=== PATIENT | female | born 2000 ===

== ENCOUNTER → 2025-06-07 11:00 | Outpatient (REF) | payer BC, SELFPAY | LOC: CLAB 11:00 | PROVIDERS: ATTENDING PHYSICIAN Otolaryngology | DX: J35.1 Hypertrophy of tonsils (principal) | CPT/HCPCS: 88304 ==

== ENCOUNTER 2025-06-17 21:01 | Observation (INO) | payer BC, SELFPAY ==
[2025-06-17 21:00] VITALS: BP 130/84; BMI 24.5
--- NOTE | 2025-06-17 21:54 | HPS.HSE ---
Family Physician
-
Family Physician: Severo Garcia
Chief Complaint
-
bleeding from surgical site
History of Present Illness
24-year-old female past medical history of tonsillectomy on 06/07 complicated by bleeding, narcolepsy, ADHD, anxiety/depression, migraines, presenting as a transfer from [facility].
Patient underwent tonsillectomy/adenoidectomy on 06/07 at outpatient surgical center by Dr. Shirley Ness. Approximately 6 days after surgery she developed bleeding from the site and almost choked during sleeping. She presented to [facility]
for postoperative bleeding. She was observed for 24 hours and discharged. She returned overnight for recurrent bleeding causing choking. She was taken to the operating room for cauterization of tonsillectomies site for bleeding. While in the
PACU she had recurrent bleeding and was taken back for control bleeding with ligation of lingual artery. Stitches were placed at that time.
Patient also developed oleary on her lip and cheek from silver nitrate used for cauterization. She was supposed to see plastic surgery but this was never accomplished before she was transferred to [facility].
Medical History
Past Medical History
Past Medical History: Reports Other (tonsillectomy on 06/07 complicated by bleeding, narcolepsy, ADHD, anxiety/depression, migraines,)
Past Surgical History: Reports Orthopedic (ACL surgery )
Social History
Alcohol: None
Drug: None
Personal: Single
Family History
Family History: Not pertinent
Allergies / Home Medications
Allergies reflects when Allergies were last updated in [employer].
Home Medications with original date entered in [employer]
Allergy/Medication List:
-
Review of Systems
-
Constitutional: Reports No Symptoms
EENT: Reports No Symptoms
Respiratory: Reports No Symptoms
Cardiac: Reports No Symptoms
Abdomen/GI: Reports No Symptoms
: Reports No Symptoms
Musculoskeletal: Reports No Symptoms
Skin: Reports No Symptoms
Neurological: Reports No Symptoms
Endocrine: Reports No Symptoms
Hematologic/Lymphatic: Reports No Symptoms
Psych: Reports No Symptoms
Physical Exam
Vital Signs
Vital Signs
Temp Pulse Resp BP Pulse Ox
97.6 F 83 19 130/84 100
06/17/25 21:00 06/17/25 21:00 06/17/25 21:00 06/17/25 21:00 06/17/25 21:00
Physical Exam
General: Well Developed, Well Nourished and No Apparent Distress
HEENT: NormoCephalic, Moist mucous membranes and Atraumatic
Respiratory: Clear
Cardiac: S1/S2 and Regular Rhythm; No Murmur or Rub
GI: Soft, Non Tender, Non Distended and Normal Bowel Sounds; No Organomegaly
Rectal: Deferred by Provider
Musculoskeletal: No Clubbing, No Cyanosis and No Edema
Skin: Other (silver nitrate stains on lip ); No Rash
Neuro: Nonfocal/grossly intact
Data Reviewed
-
Lab Data: Labs Reviewed by me
Old Records: Reviewed
Impression/Plan
-
IMPRESSION:
PLAN:
# Postoperative bleeding from tonsillectomy/adenoidectomy site status post failed cauterization and ligation of lingual artery with stitches
# Acute blood loss anemia
- Patient feels that the stitches are coming off and worried about recurrent bleeding, risk for impending bleeding
- Patient's ENT physician Dr. Gin Nses ([phone]) to evaluate patient today and to be notified if further bleeding
- Hemoglobin did drop from 12-10.4, and patient did not require blood transfusions
- Continue clindamycin empirically for potential infection at surgical site
- Full liquid diet
- Continue ferrous sulfate
# Silver nitrate oleary of lip/cheek
-Continue topical bacitracin/polymyxin
- Consult wound care
- Plastics evaluation/derm was requested by [facility] which was never accomplished before transfer
ADHD
- Continue methylphenidate
Anxiety/depression
- Continue Lexapro
Narcolepsy
- Continue Lumryz, Sunosi
Migraines
- Continue sumatriptan as needed
Full code
DVT prophylaxis�SCDs
Regular diet
--- NOTE | 2025-06-17 22:44 | W.CON.OTO ---
Otolaryngology Consult
Consult
Performing Provider: Gin Ness
Chief Complaint
post-tonsillectomy bleeding
History of Present Illness
24 f 10 d s/p tonsillectomy at [facility] complicated by post-op bleeding . Transferred from [facility] for continuity of care after emergent cautery in OR. Needs to be observed for recurrent bleeding. Is feeling traumatized and fearful of
re-bleeding and also co pain in throat as expected. Has also expected hunger and fatigue since minimal pO since surgery and disrupted sleep/ rest
Medical History
Past Medical History: Psychiatric
Additional Past Medical History:
narcolepsy, anxiety
Physical Exam
Vitals / Labs:
Vital Signs
Temp 97.6 F 06/17/25 21:00
Temp route: Oral 06/17/25 21:00
Pulse 83 06/17/25 21:00
Resp Rate 19 06/17/25 21:00
Blood pressure 130/84 06/17/25 21:00
Blood pressure extremity used: Left upper arm 06/17/25 21:00
Position: Lying 06/17/25 21:00
SaO2 100 06/17/25 21:00
Oxygen Mode of Delivery Room air 06/17/25 21:00
Actual Weight 70.931 kg 06/17/25 21:00
Body Mass Index (BMI) 24.5 06/17/25 21:00
Exam:
bilateral tonsillar fossae with secondary eschar as expected, no clots visible now.
Assessment / Plan
Observe for re-bleeding ( has had 3-4 bleeds since initial operation but is nearing end of bleeding risk period) . Keep IV access. OK for full liquid diet, stress meal replacement like Boost or Ensure to help with nutrition. Recommend continued pain
control and also consider daily stool softener like colace. Hydrate with IVF if needed and agree with lab check in AM to follow electrolytes and HCT.
--- NOTE | 2025-06-17 23:00 | PTCARENOTE ---
Direct admit to from [place] around 2229. Pt. able to ambulate with steady gait and no device. Hospitalist and ENT at bedside to see patient. Oriented pt. and parents to room and unit policies, bed locked and in lowest position, side rails in
place, call light within reach, and questions answered.
[2025-06-17 23:03] VITALS: BP 111/74
[2025-06-17] MEDS: CLEOCIN 50 IV (23:43)
[2025-06-17] MEDS: NON-FORMULARY ITEM 1 UNIT PO (23:43)
[2025-06-17] MEDS: TESSALON PERLES 100 MG PO (23:58)
[2025-06-17] MEDS: PERCOCET 5/325 1 TABLET PO (23:58)
[2025-06-18 03:05] VITALS: BP 97/54
[2025-06-18] MEDS: PERCOCET 5/325 2 TABLET PO ×2 (05:54→21:10)
[2025-06-18] MEDS: TESSALON PERLES 100 MG PO ×2 (05:59→12:30)
[2025-06-18 06:14] LABS: Hematocrit 26.6 % (37.0-47.0); Hemoglobin 9.0 g/dL (12.0-16.0); Mean Corp Hgb Conc. 33.8 g/dL (33.0-37.0); Mean Corpuscular Volume 85.3 fL (81.0-99.0); Platelet Count 289 10^3/uL (130-400); Red Cell Dist. Width 12.6 % (11.5-14.5)
[2025-06-18 06:31] LABS: ALT (SGPT) 10 U/L (0-35); AST (SGOT) 14 U/L (14-36); Albumin 3.4 g/dl (3.5-5.0); Alkaline Phosphatase 53 U/L (38-126); Blood Urea Nitrogen 6 mg/dl (7-17); Calcium 9.2 mg/dl (8.4-10.2); Carbon Dioxide 28 mmol/L (22-30); Chloride 106 mmol/L (98-107); Estimated Creatinine Clearance > 125 ml/min; Glucose 93 mg/dl (70-99); Potassium 4.0 mmol/L (3.5-5.1); Sodium 138 mmol/L (135-145); Total Protein 5.9 g/dl (6.3-8.2); eGFR > 60.00
[2025-06-18 07:10] VITALS: BP 108/71
[2025-06-18 07:36] LABS: Nucleated Red Blood Cells % 0 %
[2025-06-18] MEDS: MORPHINE SULFATE 1 MG IV (07:49)
[2025-06-18] MEDS: COLACE 100 MG PO ×2 (07:49→21:10)
[2025-06-18] MEDS: NON-FORMULARY ITEM 1 UNIT PO ×2 (07:50→17:49)
--- NOTE | 2025-06-18 08:14 | W.PN.UPDATE ---
Update Note
Progress Note Update
I saw and evaluated the patient. I reviewed the resident�s note and agree with findings and plan as documented in the resident�s note.
Denies oropharyngeal bleeding today.
Pt seen and examined with pt's father and both grandparents present at bedside for the entirety of the interview and physical exam
Gen: NAD, AAOx3.
Eyes: EOMI, PERRLA, no scleral icterus.
Neck: supple.
ENMT: Oropharynx without blood. Evidence of tonsillectomy.
CV: RRR, +S1/S2, no m/r/g.
Resp: CTAB, no rales, wheezes, or rhonchi.
Skin: No rashes.
Neuro: CN 2-12 intact, non-focal.
Psych: Normal mood and affect.
Acute blood loss anemia due to postoperative bleeding from tonsillectomy/adenoidectomy site:
-s/p failed cauterization and ligation of lingual artery with stitches
-Patient feels that the stitches are coming off and worried about recurrent bleeding
-Patient's ENT physician Dr. Gin Ness ([phone]) saw in c/s
-Hb 9.0 (was 12 prior)
-Continue clindamycin empirically for potential infection at surgical site
-Full liquid diet
-Continue ferrous sulfate
Silver nitrate oleary of lip/cheek
-Continue topical bacitracin/polymyxin
-Consult wound care
-Plastics evaluation/derm was requested by [facility] which was never accomplished before transfer
ADHD
- Continue methylphenidate
Anxiety/depression
- Continue Lexapro
Narcolepsy
- Continue Lumryz, Sunosi
Migraines
- Continue sumatriptan as needed
RN updated
FULL/SCDs
Dispo: possible d/c after seen by Dr. Ness today.
--- NOTE | 2025-06-18 08:30 | W.PN.HOSP.TC ---
Today's Communication/Plan
-
ENT Dr. Ness following
Continue current treatment
Wound consult
Assessment / Plan
Assessment / Plan
24-year-old female with a past medical history of anxiety and narcolepsy, status post tonsillectomy 10 days ago who was transferred from [facility] for continuity of care after emergent cautery in OR. Patient admitted for observation for
recurrent bleeding.
Assessment/plan:
# Post tonsillectomy bleeding
# Acute blood loss anemia
Patient failed cauterization and ligation of lingual artery with stitches
�ENT Dr. Ness following- [phone]. Dr. Ness to see again today 06/18/25.
�Keep IV access, okay for full liquid diet, stressed meal replacement like boost or Ensure to help with nutrition.
�Continue clindamycin, ferrous sulfate, pain control, IV fluids and Colace.
�Hgb 9.0, decreased from 12. Trend labs to follow electrolytes and HCT.
# Burn of lip and check due to silver nitrate
- Wound care consulted
- Continue topical bacitracin/polymyxin.
#ADHD
#Anxiety
#Depression
- Continue methylphenidate, Lexapro
#Narcolepsy
- Continue Lumryz, solfiramfetol
# Migraines
- Continue sumatriptan
Code status: Full code
DVT prophylaxis: SCDs
Anticipated Discharge: Within 24 hours
Subjective/Interval History
-
Date of Service: June 18, 2025
Patient states she feels fine. She did not have any oropharyngeal bleeding today. No new complaints.
Objective Data
-
Labs:
Laboratory Results
06/18/25
05:47
WBC 6.5
Hgb 9.0 L
Hct 26.6 L
Plt Count 289
Sodium 138
Potassium 4.0
Chloride 106
Carbon Dioxide 28
BUN 6 L
Creatinine 0.6
Glucose 93
Calcium 9.2
Total Bilirubin 0.3
AST 14
ALT 10
Alkaline Phosphatase 53
Vital Signs:
Vital Signs
Temp Pulse Resp BP Pulse Ox
98.4 F 72 16 108/71 98
06/18/25 07:10 06/18/25 07:10 06/18/25 07:10 06/18/25 07:10 06/18/25 07:10
I&O
06/17/25 06/18/25 06/19/25
06:59 06:59 06:59
Intake Total 960 / 960
Balance 960 / 960
Review of Systems
-
History Source: Patient
All other systems: Reviewed and negative
Constitutional: Reports No Symptoms
EENT: Reports No Symptoms Reported
Respiratory: Reports No Symptoms
Cardiac: Reports No Symptoms
Breast: Reports No Symptoms
Genitourinary: Reports No Symptoms
Musculoskeletal: Reports No Symptoms
Skin: Reports No Symptoms
Neuro: Reports No Symptoms
Endocrine: Reports No Symptoms
Physical Exam
-
General: Well Developed, Well Nourished, No Apparent Distress and Conversant
HEENT: Normocephalic, Atraumatic, Moist Mucous Membranes, Anicteric and Other (No evidence of bleeding in the oropharynx.)
Respiratory: Clear to Auscultation
Cardiac: Regular Rhythm and S1/S2
GI: Soft, Nontender, Nondistended, Normal Bowel Sounds and No Hepatosplenomegaly
Musculoskeletal: No Clubbing, No Cyanosis and No Edema
Neuro: Awake and AO x 3
Psych: Calm
Data Reviewed
-
Labs: Labs Reviewed by me and Discussed with Physician
Old Records: Reviewed
[2025-06-18] MEDS: CLEOCIN 50 IV (08:57)
--- NOTE | 2025-06-18 10:55 | PTCARENOTE ---
Morphine given for 10/10 throat pain with good relief. Patient tolerating >50% of full liquid meal. Patient OOB with supervision. Patient took shower independently. Family at bedside.
--- NOTE | 2025-06-18 11:31 | CM ---
CM following re: discharge planning.
Reviewed pt's chart, met with pt. Pt's grandparents at bedside.
Pt is a 24 year old female, admitted with OBS status and primary dx of Postoperative bleeding from tonsillectomy/adenoidectomy site status post failed cauterization and ligation of lingual artery with stitches. Pt transferred from [facility].
Pt expressed her very negative feelings regarding care at [facility]. Emotional support offered and provided.
OBS status explained to the pt, pt declined to sign, has a copy, OBS letter placed on chart.
Pt reports she lives with parents 2SH, 2 steps to enter and pt described herself as independent in all areas [employer].
PCP: Severo Garcia
Pharmacy: [facility]
D/C plan: home with anticipated no needs. Parents to transport at discharge.
CM will follow with discharge plan updates as hospitalization progresses.
--- NOTE | 2025-06-18 11:57 | WOUNDNOTE ---
[facility] RN NOTE: Reviewed chart and met with patient and family. Patient admitted for observation after recurrent bleeding s/p tonsillectomy on 06/07. During cauterization, patients right lip was burned with silver nitrate. 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
pics s/p burn and wound appears to be processing toward healing. Patient expressed that she is anxious about the burn and wants it to go away so she will not be reminded of the recurrent bleeding episodes at [place]. As the silver nitrate is
sloughing off, the exposed skin appears to be healing well. No open areas or drainage noted. Triple antibiotic ointment has been ordered and patient is also using Aquaphor at bedside. Instructed patient to continue to keep skin moist. Dr. Robb,
RN Aleida and discharge instructions updated. Will sign off.
[2025-06-18] MEDS: POLYSPORIN OINTMENT 1 APPLIC TOPICAL (12:29)
[2025-06-18] MEDS: PERCOCET 5/325 1 TABLET PO (12:34)
[2025-06-18] MEDS: MIRALAX 17 GRAMS PO (13:00)
--- NOTE | 2025-06-18 15:36 | W.PN.ENT ---
Today's Communication
-
see above
Impression / Plan
-
S/p tonsillar bleed after tonsillectomy. Risk of rebleed reduces with every passing day. Pt interested in advancing diet, ok with me for soft food.
continue to try to support bowel function , agree with miralax and colace. Should get better when pt can take more normal food with residual.
pain control , ok with percocet pt can take 1-2 as needed, had morphine for breakthrough.
Ok to stop abx, not necessary at this pt.
If tonight ok, anticipate am d/c
Subjective Data
-
Pain was bad and am and now tolerable . REquesting soft food. No bleeding today, pain goes back and forth. Slept 6-7 h last night!
Objective Data
-
Vital Signs
Temp Pulse Resp BP Pulse Ox
98.4 F 72 16 108/71 98
06/18/25 07:10 06/18/25 07:10 06/18/25 07:10 06/18/25 07:10 06/18/25 07:10
Intake & Output
06/17/25 06/18/25 06/19/25
06:59 06:59 06:59
Intake:
Oral fluids 960 / 960
Other:
Number of approximated MODERATE 1
amounts of urine
How many times incontinent 1
MODERATE amount urine
Lab Results
06/18/25 05:47
06/18/25 05:47
Calcium 9.2 mg/dl (8.4-10.2) 06/18/25 05:47
Total Bilirubin 0.3 mg/dl (0.2-1.3) 06/18/25 05:47
AST 14 U/L (14-36) 06/18/25 05:47
ALT 10 U/L (0-35) 06/18/25 05:47
Alkaline Phosphatase 53 U/L (38-126) 06/18/25 05:47
Physical Exam
-
tonsillar fossae with expected secondary eschar, no clots present or any blood, old or new. Epidermal stain over upper lip is sloughing off as expected also.
Data Reviewed
-
Radiology Results: Report Reviewed and Image Reviewed
Micro Results: Report Reviewed
[2025-06-18 16:00] VITALS: BP 121/80
[2025-06-18] MEDS: CLEOCIN IV (16:24)
--- NOTE | 2025-06-18 18:00 | PTCARENOTE ---
Patient tolerated soft diet, ate 100%. Patient ambulating in halls with a seady gait. Patient has minimal c/o pain at present. Friend at bedside.
--- NOTE | 2025-06-18 22:36 | PTCARENOTE ---
Pt tolerating diet, no BM this shift @ this time. Pt with visitors beginning of [facility] that stayed for 3 hours, pt was talking majority of time during the visit. Pt request pain medication for 8 pain r/t to talking. Pt aware that she should have
limited her speaking. RN assessed tonisl, no active sign of bleeding, both tonsil sites appear healthy, tissue white not swelling noted.
[2025-06-18 23:11] VITALS: BP 106/73
[2025-06-19 06:24] LABS: Hematocrit 29.0 % (37.0-47.0); Hemoglobin 10.0 g/dL (12.0-16.0); Mean Corp Hgb Conc. 34.5 g/dL (33.0-37.0); Mean Corpuscular Volume 83.8 fL (81.0-99.0); Nucleated Red Blood Cells % 0 %; Platelet Count 366 10^3/uL (130-400); Red Cell Dist. Width 12.4 % (11.5-14.5)
[2025-06-19 06:33] LABS: ALT (SGPT) 11 U/L (0-35); AST (SGOT) 15 U/L (14-36); Albumin 3.8 g/dl (3.5-5.0); Alkaline Phosphatase 65 U/L (38-126); Blood Urea Nitrogen 7 mg/dl (7-17); Calcium 9.7 mg/dl (8.4-10.2); Carbon Dioxide 30 mmol/L (22-30); Chloride 103 mmol/L (98-107); Estimated Creatinine Clearance 118 ml/min; Glucose 90 mg/dl (70-99); Magnesium 2.2 mg/dl (1.6-2.3); Potassium 4.4 mmol/L (3.5-5.1); Sodium 137 mmol/L (135-145); Total Protein 6.4 g/dl (6.3-8.2); eGFR > 60.00
[2025-06-19 07:15] VITALS: BP 111/68
[2025-06-19] MEDS: COLACE 100 MG PO (07:33)
[2025-06-19] MEDS: TESSALON PERLES 100 MG PO (07:33)
[2025-06-19] MEDS: PERCOCET 5/325 2 TABLET PO (07:34)
[2025-06-19] MEDS: NON-FORMULARY ITEM 1 UNIT PO (07:36)
--- NOTE | 2025-06-19 07:45 | W.PN.UPDATE ---
Addendum entered and electronically signed by Walt Hoffman MD 06/19/25 09:24:
I have sent 7 tablets of Percocet to the patient's pharmacy. I did review the [place]PDMP. The patient did recently receive [place]. I discussed this over the phone with her. She states that the [place] 'made her sick.' She states that she is going to
have her mother return the remaining [place] to the pharmacy to be destroyed.
Original Note:
Update Note
Progress Note Update
I saw and evaluated the patient. I reviewed the resident�s note and agree with findings and plan as documented in the resident�s note.
Denies oropharyngeal bleeding.
Pt seen and examined with LOLA Joy present at bedside for the entirety of the interview and physical exam
Gen: NAD, AAOx3.
Eyes: EOMI, PERRLA, no scleral icterus.
Neck: supple.
ENMT: Oropharynx without blood. Evidence of tonsillectomy.
CV: remains RRR, +S1/S2, no m/r/g.
Resp: remains CTAB, no rales, wheezes, or rhonchi.
Skin: No rashes.
Neuro: CN 2-12 intact, non-focal.
Psych: Normal mood and affect.
Acute blood loss anemia due to postoperative bleeding from tonsillectomy/adenoidectomy site:
-s/p failed cauterization and ligation of lingual artery with stitches
-Patient feels that the stitches are coming off and worried about recurrent bleeding
-Patient's ENT physician Dr. Gin Ness ([phone]) saw in c/s
-Hb stable, currently 10
-no need for further clindamycin as per ENT
-Full liquid diet
-Continue ferrous sulfate
Silver nitrate oleary of lip/cheek
-Continue topical bacitracin/polymyxin
-Consult wound care
-Plastics evaluation/derm was requested by [facility] which was never accomplished before transfer
ADHD
- Continue methylphenidate
Anxiety/depression
- Continue Lexapro
Narcolepsy
- Continue Lumryz, Sunosi
Migraines
- Continue sumatriptan as needed
FULL/SCDs
Total time spent on d/c = 31 min. This included today's physical exam, progress note, review of laboratory and diagnostic data, preparation of discharge documents and prescriptions, and discussions about the pt's hospital course and discharge plan
with the patient and other medical staff services manager involved in the patient's care.
--- NOTE | 2025-06-19 08:02 | W.PN.HOSP.TC ---
Today's Communication/Plan
-
Patient medically stable for discharge.
Assessment / Plan
Assessment / Plan
24-year-old female with a past medical history of anxiety and narcolepsy, status post tonsillectomy 10 days ago who was transferred from [facility] for continuity of care after emergent cautery in OR. Patient admitted for observation for
recurrent bleeding.
Assessment/plan:
# Post tonsillectomy bleeding
# Acute blood loss anemia
Patient failed cauterization and ligation of lingual artery with stitches
�ENT Dr. Gin Ness was consulted. Risk of rebleed reduces with every passing day. Recommends advancing diet as tolerated, supporting bowel function, Miralax/Colace, pain control as needed.
�Okay to stop clindamycin per ENT recs. Okay to discharge today 06/19 if no new symptoms.
�Hgb 10.0 today 06/19/2025, increased from 9.0 from yesterday.
# Burn of lip and check due to silver nitrate
- Wound care was consulted.
- Continue topical bacitracin/polymyxin as needed.
#ADHD
#Anxiety
#Depression
- Continue methylphenidate, Lexapro
#Narcolepsy
- Continue Lumryz, solfiramfetol
# Migraines
- Continue sumatriptan
Code status: Full code
DVT prophylaxis: SCDs
Anticipated Discharge: Today
Subjective/Interval History
-
Date of Service: June 19, 2025
Patient denies any bleeding overnight. No new complaints.
Objective Data
-
Labs:
Laboratory Results
06/19/25
05:32
WBC 7.9
Hgb 10.0 L
Hct 29.0 L
Plt Count 366 D
Sodium 137
Potassium 4.4
Chloride 103
Carbon Dioxide 30
BUN 7
Creatinine 0.7
Glucose 90
Calcium 9.7
Total Bilirubin 0.3
AST 15
ALT 11
Alkaline Phosphatase 65
Vital Signs:
Vital Signs
Temp Pulse Resp BP Pulse Ox
98.2 F 70 16 106/73 99
06/18/25 23:11 06/18/25 23:11 06/18/25 23:11 06/18/25 23:11 06/18/25 23:11
I&O
06/18/25 06/19/25 06/20/25
06:59 06:59 06:59
Intake Total 960 / 960 580 / 580
Balance 960 / 960 580 / 580
Review of Systems
-
History Source: Patient
All other systems: Reviewed and negative
Constitutional: Reports No Symptoms
EENT: Reports No Symptoms Reported
Respiratory: Reports No Symptoms
Cardiac: Reports No Symptoms
Breast: Reports No Symptoms
Genitourinary: Reports No Symptoms
Musculoskeletal: Reports No Symptoms
Skin: Reports No Symptoms
Neuro: Reports No Symptoms
Endocrine: Reports No Symptoms
Physical Exam
-
General: Well Developed, Well Nourished, No Apparent Distress and Conversant
HEENT: Normocephalic, Atraumatic, Moist Mucous Membranes, Anicteric and Other (No evidence of bleeding in the oropharynx.)
Respiratory: Clear to Auscultation
Cardiac: Regular Rhythm and S1/S2
GI: Soft, Nontender, Nondistended, Normal Bowel Sounds and No Hepatosplenomegaly
Musculoskeletal: No Clubbing, No Cyanosis and No Edema
Neuro: Awake and AO x 3
Psych: Calm
Data Reviewed
-
Labs: Labs Reviewed by me and Discussed with Physician
Old Records: Reviewed
--- NOTE | 2025-06-19 08:11 | W.DCSUMMARY ---
Discharge Summary
Discharge Data
Date of Admission: 06/17/25
Date of Discharge: 06/19/25
-
Pending Results: No
Hospital Course
Discharging Physician : Dr. Walt Hoffman and Dr. Larry Robb
Disposition : Home
Primary care physician : Dr. Severo Garcia
Principal Discharge diagnosis : Post tonsillectomy bleeding with acute blood loss anemia, burn of lip and cheek due to silver nitrate
Chronic Discharge diagnosis :
ADHD
Anxiety
Depression
Narcolepsy
Migraines
Hospital Course :
This is a 24-year-old female with a past medical history of anxiety, depression, narcolepsy, migraines, ADHD, status post tonsillectomy/adenoidectomy on 06/07/[address] Gin Ness. Approximately 6 days after surgery she started having bleeding
from the surgical site and states ' almost choked during sleeping.' Patient went to [facility] for the symptoms, and was observed for 24 hours. Patient was transferred to our facility for continuity of care after getting emergent cautery in
the OR. Patient was admitted for observation for recurrent bleeding and to be evaluated by Dr. Gin Ness. Patient's hemoglobin was 9.0 upon arrival, decreased from 12 at baseline. She was continued on clindamycin, ferrous sulfate,
Colace/MiraLAX, pain control and IV fluids. Patient was okay for full liquid diet, stressed meal replacement with boost or Ensure to help with nutrition. We trended her labs to follow electrolytes and hematocrit.
Patient also had oleary of lip and cheek due to silver nitrate for which wound care was consulted. We continued topical bacitracin/polymyxin as needed. Patient's ADHD/anxiety/depression was managed with her at home regimen including methylphenidate
and Lexapro. We continued Lumryz and solfiramfetol for narcolepsy, and sumatriptan for migraines.
She was reevaluated on 06/18/[address]ess. Patient's risk of rebleeding reduces with every passing day. Patient was interested in advancing her diet so was approved for soft food and advancing as tolerated. Dr. Ness recommended continuing
to support bowel function/ pain control as needed. Antibiotics were stopped as they were not necessary anymore. Patient was to be observed overnight on 06/18/2025, and if did not have any symptoms, plan discharge the next day on 06/19/2025.
Patient was well overnight and did not have any episodes of bleeding. She was advised to follow-up with PCP in 1 week and ENT as needed. Patient and family agreed to this plan.
Discharge Plan
-
Patient Disposition: Home (Routine Discharge)
Discharge Diagnosis/Procedures: Post-tonsillectomy bleeding with acute blood loss anemia, burn of lip and cheek due to silver nitrate
Condition: Good
Diet: No restrictions
Activity: No restrictions
Driving Restrictions: As prior to admission
Bathing Restrictions: None
Blood Work: CBC and CMP in 1 week�obtain script from PCP
Activity Restrictions/Additional Instructions:
Wound Care Instructions Right Lip- Keep healing areas clean by gently washing with soap and water or normal saline. Keep healing areas covered with antibiotic ointment or Aquaphor.
Referrals:
Gin Ness MD [Active, ENT] - in one to two weeks
Severo Garcia MD [Family Provider, Family Practice] - in less than 1 week
Additional Discharge Medication Instructions: Follow up with ENT as needed.
Prescriptions:
New
benzonatate 100 mg Capsule
100 mg PO Q4HPRN PRN (Reason: COUGH) Qty: 10 0RF
Polysporin 500-10,000 unit/gram Ointment In Packet
1 applic topical TIDPRN PRN (Reason: lip) Qty: 144 0RF
polyethylene glycol 3350 17 gram Powder In Packet
17 g PO DAILYPRN PRN (Reason: constipation) Qty: 0 0RF
oxycodone-acetaminophen 5-325 mg Tablet
1 tab PO Q4HPRN PRN (Reason: MILD PAIN) Qty: 7 0RF
docusate sodium 100 mg Capsule
100 mg PO BID Qty: 0 0RF
Continued
methylphenidate HCl 10 mg Tablet
10 mg PO DAILY PRN (Reason: ADHD)
sumatriptan succinate 25 mg Tablet
25 mg PO ONCE PRN (Reason: migraine)
Rx Instructions:
Once for migraine, may repeat dose once in 2 hours if no relief, do not exceed 2 doses in 24hrs.
escitalopram oxalate 20 mg Tablet
20 mg PO ONCE PM
clonazepam 0.25 mg Tablet,Disintegrating
0.25 mg PO PRN PRN (Reason: panic attacks)
Rx Instructions:
1mg total in 24hrs
Sunosi 150 mg Tablet
150 mg PO DAILY
Slynd 4 mg (28) Tablet
1 tab PO DAILY
Discharge Orders:
Discharge Patient (As Directed); Ordered 06/19/25
Ordered By: Walt Hoffman
Discharge Date and Time
Print Language: CZECH
[2025-06-19] MEDS: POLYSPORIN OINTMENT 1 APPLIC TOPICAL (09:18)
--- NOTE | 2025-06-19 10:05 | W.PN.ENT ---
Today's Communication
-
Plan for d/c . See above
Impression / Plan
-
S/p tonsillar bleed after tonsillectomy. No bleeding for several days now. Pt understands risk of re-bleed at 7 days from cautery does exist but is very small. Only restrictions at this point are strenuous exersize and HEAVY lifting (over 15 lbs)
for the next week. Also encourages SOFT diet until next weekend. Bowel regimens discussed, pt will self-manage with hydration, fiber and stool softeners.
Will refill Klonopin for panic. OK for d/c
Appreciate hospitalists, thank you.
Subjective Data
-
panic attack last night, but no bleeding. Pain ok on PO percocets. Tolerating soft diet. NO bm yet.
Objective Data
-
Vital Signs
Temp Pulse Resp BP Pulse Ox
98.4 F 79 16 111/68 99
06/19/25 07:15 06/19/25 07:15 06/19/25 07:15 06/19/25 07:15 06/19/25 07:15
Intake & Output
06/18/25 06/19/25 06/20/25
06:59 06:59 06:59
Intake:
Oral fluids 960 / 960 580 / 580 480 / 480
Other:
Number of approximated MODERATE 1 3 1
amounts of urine
How many times incontinent 1
MODERATE amount urine
Lab Results
06/19/25 05:32
06/19/25 05:32
Calcium 9.7 mg/dl (8.4-10.2) 06/19/25 05:32
Magnesium 2.2 mg/dl (1.6-2.3) 06/19/25 05:32
Total Bilirubin 0.3 mg/dl (0.2-1.3) 06/19/25 05:32
AST 15 U/L (14-36) 06/19/25 05:32
ALT 11 U/L (0-35) 06/19/25 05:32
Alkaline Phosphatase 65 U/L (38-126) 06/19/25 05:32
Physical Exam
-
Healing secondary eschar on both tonsil fossae except lower left pole; this has primary eschar still, consistent with cuatery wed night. Pieces of chromic stitch in there somewhere as well.
Chest: Clear
[2025-06-19 11:30] VITALS: BP 115/70
[2025-06-19] MEDS: KLONOPIN 0.25 MG PO (12:16)
[2025-06-19] MEDS: MIRALAX 17 GRAMS PO (12:16)
[2025-06-19] MEDS: PERCOCET 5/325 1 TABLET PO (14:30)
== END 2025-06-19 14:49 | disposition home or self-care (01) ==
LOC: 2 SOUTH 21:01
PROVIDERS: ADMITTING PHYSICIAN Hospitalist; ATTENDING PHYSICIAN Internal Medicine; CONSULT PHYSICIAN Otolaryngology; FAMILY PHYSICIAN Family Medicine
DX: J95.830 Postprocedural hemorrhage of a respiratory system organ or structure following a respiratory system procedure (principal); D62 Acute posthemorrhagic anemia; T20.42XA Corrosion of unspecified degree of lip(s), initial encounter; T20.46XA Corrosion of unspecified degree of forehead and cheek, initial encounter; G47.419 Narcolepsy without cataplexy; F90.9 Attention-deficit hyperactivity disorder, unspecified type; G43.909 Migraine, unspecified, not intractable, without status migrainosus; F32.A Depression, unspecified; F41.0 Panic disorder [episodic paroxysmal anxiety]; Y83.8 Other surgical procedures as the cause of abnormal reaction of the patient, or of later complication, without mention of misadventure at the time of the procedure
CPT/HCPCS: 80053; 83735; 85025; G0378